=== PATIENT | female | born 1995 | race Caucasian/White ===

== ENCOUNTER 2019-09-11 02:42 | Inpatient (IN) | payer BC ==
--- OUTSIDE RECORDS SUMMARY | ~2019-09-11 | XMS | Encounter Summary ---
Demographics + + + | Address | [address] | | | [place] [address] | + + + | Home Phone | | + + + | Preferred Language | Unknown | + + + | Marital Status | | + + + | Rastafarian Affiliation | Unknown | + + + | Race | Unknown | + + + | Ethnic Group | Unknown | + + + Author + + + | Author | [facility] | | | and [place] | + + + | Organization | [facility] | | | and [place] | + + + | Address | Unknown | + + + | Phone | Unavailable | + + + Support + + +---------+ + | Name | Relationship | Address | Phone | + + +---------+ + | Corey Sweeney | ECON | Unknown | | + + +---------+ + Care Team Providers + +------+ + | Care Proposal Consultant Name | Role | Phone | + +------+ + | Brionna Lucio | PCP | | | PA | | | + +------+ + Encounter Details +--------+ + + + + | Date | Type | Department | Care Team | Description | +--------+ + + + + | 10/31/ | Orders Only | [facility] | Conversion | | | 2018 | | CONVERSION DEP [address] | Transaction, | | | | | [address] | Provider Unknown | | | | | [facility] | [phone] | | | | | [address] | | | | | | [phone] | | | +--------+ + + + + Social History + +-------+ +--------+------+ | Tobacco Use | Types | Packs/Day | Years | Date | | | | | Used | | + +-------+ +--------+------+ | Never Smoker | | | | | + +-------+ +--------+------+ + + + | Sex Assigned at | Date Recorded | | | | + + + | Not on file | | + + + + + + + | Job Start Date | Occupation | Industry | + + + + | Not on file | Not on file | Not on file | + + + + + + + + | Travel History | Travel Start | Travel End | + + + + + + | No recent travel history available. | + + documented as of this encounter Plan of Treatment Not on filedocumented as of this encounter Visit Diagnoses Not on filedocumented in this encounter"
--- OUTSIDE RECORDS SUMMARY | ~2019-09-11 | XMS | Clinical Summary ---
Demographics + + + | Address | [address] | | | [place] [address] | + + + | Home Phone | | + + + | Preferred Language | Unknown | + + + | Marital Status | | + + + | Mormonism Affiliation | Unknown | + + + | Race | Unknown | + + + | Ethnic Group | Unknown | + + + Author + + + | Author | [facility] | | | and [place] | + + + | Organization | [facility] | | | and [...] Team Providers + +------+ + | Care Pre Press Proofer Name | Role | Phone | + +------+ + | Brionna Lucio | PCP | | | PA | | | + +------+ + Allergies No Known Allergies Medications + + + +---------+------+------+-------+ | Medication | Sig | Dispensed | Refills | Star | End | Statu | | | | | | t | Date | s | | | | | | Date | | | + + + +---------+------+------+-------+ | gabapentin | Take 300 mg by mouth | | 9 | 06/1 | | Activ | | (NEURONTIN) 300 mg | daily. | | | 20 | | e | | capsule | | | | 18 | | | + + + +---------+------+------+-------+ | estradiol | Place 1 g vaginally | | 0 | 07/0 | | Activ | | (ESTRACE) 0.1 mg/g | daily. | | | 20 | | e | | vaginal cream | | | | 18 | | | + + + +---------+------+------+-------+ | XULANE 150-35 | Apply 1 patch | | 12 | 06/2 | | Activ | | MCG/24HR patch | topically once a | | | 3/20 | | e | | | week. | | | 18 | | | + + + +---------+------+------+-------+ Active Problems Not on file Family History + + +------+ + | Medical History | Relation | Name | Comments | + + +------+ + | Murmur | Father | | | + + +------+ + | Other (see comment) | Mother | | Other (see comments) - syncope, | | | | | palpitations | + + +------+ + | Other (see comment) | Son | | Neurologic Disorder - undiagnosed at this | | | | | point, seizures, developmental problems | + + +------+ + + +------+--------+ + | Relation | Name | Status | Comments | + +------+--------+ + | Brother | | Alive | | + +------+--------+ + | Father | | Alive | | + +------+--------+ + | Father | | | | + +------+--------+ + | Mother | | Alive | | + +------+--------+ + | Mother | | | | + +------+--------+ + | Son | | Alive | | + +------+--------+ + | Son | | | | + +------+--------+ + Social History + +-------+ +--------+------+ | [...] recent travel history available. | + + Last Filed Vital Signs + + + + + | Vital Sign | Reading | Time Taken | Comments | + + + + + | Blood Pressure | 104/68 | 10/31/2017 3:08 PM | | | | | PDT | | + + + + + | Pulse | 71 | 10/31/2017 3:08 PM | | | | | PDT | | + + + + + | Temperature | - | - | | + + + + + | Respiratory Rate | - | - | | + + + + + | Oxygen Saturation | - | - | | + + + + + | Inhaled Oxygen | - | - | | | Concentration | | | | + + + + + | Weight | 73.3 kg (161 lb 8 | 10/31/2017 3:08 PM | | | | oz) | PDT | | + + + + + | Height | 177.8 cm (5' 10") | 10/31/2017 3:08 PM | | | | | PDT | | + + + + + | Body Mass Index | 23.17 | 10/31/2017 3:08 PM | | | | | PDT | | + + + + + Plan of Treatment + + + + + | Health Maintenance | Due Date | Last Done | Comments | + + + + + | Vaccine: | | | | | Dtap/Tdap/Td (1 - | 5 | | | | Tdap) | | | | + + + + + | Vaccine: HPV (1 - | | | | | Female 2-dose | 5 | | | | series) | | | | + + + + + | Cervical Cancer | | | | | Screening (Pap) | 5 | | | + + + + + | Vaccine: Influenza | | | | | (Season Ended) | 0 | | | + + + + + Results Not on filefrom Last 3 Months
--- OUTSIDE RECORDS SUMMARY | ~2019-09-11 | XMS | Clinical Summary ---
Demographics + + + | Address | [address] | | | [place] [address] | + + + | Home Phone | | + + + | Preferred Language | Unknown | + + + | Marital Status | | + + + | Scientology Affiliation | Unknown | + + + | Race | Unknown | + + + | Ethnic Group | Unknown | + + + Author + + + | Author | [facility] (Historical as of | | | 12-08-18) | + + + | Organization | [facility] as [facility] | | | 12-08-18) | + + + | Address | Unknown | + + + | Phone | Unavailable | + + + Support + + +---------+ + | Name | Relationship | Address | Phone | + + +---------+ + | Corey Marcos | ECON | Unknown | | + + +---------+ + Care Team Providers + +------+ + | Care Insurance Application Investigator Name | Role | Phone | + +------+ + | Brionna Lucio | PP | Unavailable | + +------+ + Allergies No Known Allergies Current Medications + + +-------+---------+------+------+-------+ | Prescription | Sig. | Disp. | Refills | Star | End | Statu | | | | | | t | Date | s | | | | | | Date | | | + + +-------+---------+------+------+-------+ | gabapentin | Take 300 mg by mouth | | 9 | 09/22 | | Activ | | (NEURONTIN) 300 MG | daily. | | | 9/20 | | e | | capsule | | | | 18 | | | + + +-------+---------+------+------+-------+ | estradiol | Place 1 g vaginally | | 0 | 07/0 | | Activ | | (ESTRACE) 0.1 MG/GM | daily. | | | 6/20 | | e | | vaginal cream | | | | 18 | | | + + +-------+---------+------+------+-------+ | XULANE 150-35 | Apply 1 patch | | 12 | 06/2 | | Activ | | MCG/24HR | topically once a | | | 3/20 | | e | | | week. | | | 18 | | | + + +-------+---------+------+------+-------+ Active Problems Not on file Family History + + +------+ + | Medical History | Relation | Name | Comments | + + +------+ + | Murmur | Father | | | + + +------+ + | Other (see comments) | Mother | | syncope, palpitations | + + +------+ + | Neurologic Disorder | Son | | undiagnosed at this point, seizures, | | | | | developmental problems | + + +------+ + + +------+--------+ + | Relation | Name | Status | Comments | + +------+--------+ + | Brother | | Alive | | + +------+--------+ + | Father | | Alive | | + +------+--------+ + | Mother | | Alive | | + +------+--------+ + | Son | | Alive | | + +------+--------+ + Social History + +-------+ +--------+------+ | Tobacco Use | Types | Packs/Day | Years | Date | | | | | Used | | + +-------+ +--------+------+ | Never Smoker | | | | | + +-------+ +--------+------+ + +---+---+---+ | Smokeless Tobacco: | | | | | Never Used | | | | + +---+---+---+ + + +---------+ + | Alcohol Use | Drinks/We | oz/Week | Comments | | | ek | | | + + +---------+ + | No | | | | + + +---------+ + + + + | Sex Assigned at | Date Recorded | | | | + + + | Not on file | | + + + Last Filed Vital Signs + + + + | Vital Sign | Reading | Time Taken | + + + + | Blood Pressure | 104/68 | 10/31/2017 3:08 PM PDT | + + + + | Pulse | 71 | 10/31/2017 2:57 PM PDT | + + + + | Temperature | - | - | + + + + | Respiratory Rate | - | - | + + + + | Oxygen Saturation | 99% | 10/31/2017 2:57 PM PDT | + + + + | Inhaled Oxygen | - | - | | Concentration | | | + + + + | Weight | 73.3 kg (161 lb 8 | 10/31/2017 2:57 PM PDT | | | oz) | | + + + + | Height | 177.8 cm (5' 10") | 10/31/2017 2:57 PM PDT | + + + + | Body Mass Index | 23.17 | 10/31/2017 2:57 PM PDT | + + + + Plan of Treatment + + + + + | Health Maintenance | Due Date | Last Done | Comments | + + + + + | Vaccine: HPV (1 - | | | | | Female 3-dose | 9 | | | | series) | | | | + + + + + | Vaccine: | | | | | Dtap/Tdap/Td (1 - | 3 | | | | Tdap) | | | | + + + + + | Cervical Cancer | | | | | Screening (Pap) | 5 | | | + + + + + | Vaccine: Influenza | | | | | (Season Ended) | 0 | | | + + + + + Results Not on filefrom Last 3 Months Insurance +---------+--------+ +------+-------+ + | Payer | Benefi | Subscriber | Type | Phone | Address | | | t Plan | ID | | | | | | / | | | | | | | Group | | | | | +---------+--------+ +------+-------+ + | PREMERA | PREMER | [id number] | | | [address] [address] | | | A BLUE | 7 | | | [place], [place] | | | CARD | | | | [phone] | +---------+--------+ +------+-------+ + + +--------+ +--------+ + + | Guarantor Name | Accoun | Relation to | Date | Phone | Billing Address | | | t Type | Patient | of | | | | | | | | | | + +--------+ +--------+ + + | AMANUEL MARCOS P | Person | Self [birth year] Home: | [address] | | | al/Fam | | 1995 | [phone] [place] | | | bhavana | | [phone] | + +--------+ +--------+ + +
[~2019-09-11 02:42] MED LIST: ESTRACE42.5 GM VAGINAL; NEURONTIN300 MG PO; PRENATAL CAPSU1 EACH PO; XULANE PATCH1 EACH TD
[2019-09-11] MEDS ORDERED: PRENATAL VITAM1 EACH PO (03:35)
[2019-09-11] MEDS ORDERED: IRON240 MG PO (03:36)
--- NOTE | 2019-09-12 07:47 | PR ---
[facility] [address] [place], [place] [address] Signed PP Progress Notes Datetime Report Generated by LAITH: 09/12/2019 07:47 SUBJECTIVE: [id number] Pain: Within normal limits Vital Signs: [id number] Vital Signs: Reviewed; Within Normal Limits EXAM: [id number] Cardiovascular: Not Done Respiratory: Not Done Abdomen/Uterus: Abnormal Lochia: Normal Vulva/Perineum: Not Done Breasts: Not Done CVA Tenderness: Not Done Extremities: Normal Incision: Not Applicable Progress: Normal Exam Comments: Fundus firm, NT @ U-1. H/H 11.6/33.4, WBC 11.1, plat 186k IMPRESSION/PLAN/PROCEDURES: [id number] Impression: Normal progression Plan: Continue present management Progress Notes: Doing well. Will continue. Signing Physician: Abril Jacobson MD Copies: ~ *Electronically Signed* 09/12/19 0747 ABRIL JACOBSON MD PATIENT NAME: AMANUEL MARCOS PROGRESS NOTE DATE OF : [birth year] PHYSICIAN: ABRIL JACOBSON MD RPT #: [id number] REPORT IS CONFIDENTIAL AND NOT TO BE RELEASED WITHOUT AUTHORIZATION
--- NOTE | 2019-09-12 13:09 | NUR ---
MET WITH PTS' . HE IS VERY EXCITED, BOTH MOM AND BABY ARE DOING JUST FINE. HAD PLEASANT VISIT, ABLE TO ANSWER SIMPLE QUESTIONS ASKED, EXTENDED A BLESSING
--- NOTE | 2019-09-13 08:08 | PR ---
[facility] [address] [facility] [place], [place] [address] Signed PP Progress Notes Datetime Report Generated by LAITH: 09/13/2019 08:08 SUBJECTIVE: [id number] Pain: Within normal limits Vital Signs: [id number] Vital Signs: Reviewed; Within Normal Limits EXAM: [id number] Cardiovascular: Not Done Respiratory: Not Done Abdomen/Uterus: Abnormal Lochia: Normal Vulva/Perineum: Not Done Breasts: Not Done CVA Tenderness: Not Done Extremities: Normal Incision: Not Applicable Progress: Normal Exam Comments: Fundus firm, NT @ U-1. IMPRESSION/PLAN/PROCEDURES: [id number] Impression: Normal progression Plan: Discharge Procedures: None Progress Notes: Doing well. She is ready for D/C. Signing Physician: Abril Jacobson MD Copies: ~ *Electronically Signed* 09/13/19807 ABRIL JACOBSON MD PATIENT NAME: AMANUEL MARCOS PROGRESS NOTE DATE OF : [birth year] PHYSICIAN: ABRIL JACOBSON MD RPT #: [id number] REPORT IS CONFIDENTIAL AND NOT TO BE RELEASED WITHOUT AUTHORIZATION
== END 2019-09-13 11:24 | disposition home or self-care (01) | DRG 807 ==
LOC: FBCO 02:42 → FBC 03:17
PROVIDERS: ADMIT Obstetrics & Gynecology
PROC: 10E0XZZ Delivery of Products of Conception, External Approach (ICD-10-PCS; principal; 2019-09-11)
PROC: 0KQM0ZZ Repair Perineum Muscle, Open Approach (ICD-10-PCS; 2019-09-11)
PROC: 10907ZC Drainage of Amniotic Fluid, Therapeutic from Products of Conception, Via Natural or Artificial Opening (ICD-10-PCS; 2019-09-11)
DX: O99.824 Streptococcus B carrier state complicating childbirth (principal); Z37.0 Single live birth; Z3A.39 39 weeks gestation of pregnancy; O26.03 Excessive weight gain in pregnancy, third trimester; O76 Abnormality in fetal heart rate and rhythm complicating labor and delivery; O77.0 Labor and delivery complicated by meconium in amniotic fluid; O69.81X0 Labor and delivery complicated by cord around neck, without compression, not applicable or unspecified; O70.1 Second degree perineal laceration during delivery; Z86.19 Personal history of other infectious and parasitic diseases
CPT/HCPCS: 36415; 82803; 85027; J2540; J2590; J7121

== ENCOUNTER 2022-01-23 15:55 | Inpatient (IN) | payer BC ==
[~2022-01-23] VITALS: Ht 177.8 cm; Wt 97.5 kg
[~2022-01-23 15:55] MED LIST changes: +IRON240 MG PO; +PRENATAL VITAM1 EACH PO
--- NOTE | 2022-01-24 01:10 | PR ---
[facility] [place] [facility] [address] [facility] [place], [place] [address] Signed Progress Notes IP Datetime Report Generated by CPN: 01/24/2022 01:10 PROGRESS NOTES: [id number] Impression: Reassuring Heart Rate Procedures: Artificial ROM Other Procedures: attempted Plan: Continue Present Management VITAL SIGNS: [id number] Vital Signs: Reviewed; Within Normal Limits EXAM: [id number] Dilatation: 3.0 Effacement: 70 Station: -2 Contractions: not picking up well MEMBRANES: L7356988 Comments: No cervical change. AROM attempted but no fluid seen. Will continue. FETUS A: [id number] FHR Baseline: 150 Variability: Minimal - >Undetectable to <=5bpm Accelerations: 10X10 Decelerations: None FHR Category: Category II Presentation: Vertex FETUS B: [id number] Signing Physician: Abril aJcobson MD Copies: ~ *Electronically Signed* 01/24/22 0110 ABRIL JACOBSON MD PATIENT NAME: AMANUEL MARCOS PROGRESS NOTE DATE OF : [birth year] PHYSICIAN: ABRIL JACOBSON MD RPT #: [id number] REPORT IS CONFIDENTIAL AND NOT TO BE RELEASED WITHOUT AUTHORIZATION
--- NOTE | 2022-01-24 06:54 | PR ---
[facility] [address] [facility] [place], [place] [address] Signed Progress Notes IP Datetime Report Generated by CPN: 01/24/2022 06:54 PROGRESS NOTES: [id number] Impression: Reassuring Heart Rate Procedures: Artificial ROM Other Procedures: attempted xs 2 Plan: Continue Present Management VITAL SIGNS: [id number] Vital Signs: Reviewed; Within Normal Limits EXAM: [id number] Dilatation: 3.0 Effacement: 70 Station: -2 Contractions: not picking up well MEMBRANES: W0742954 Comments: No progress. status reassuring. If AROM does not oocur, next option for augmentation is pitocin. FETUS A: [id number] FHR Baseline: 150 Variability: Minimal - >Undetectable to <=5bpm Accelerations: 10X10 Decelerations: None FHR Category: Category II Presentation: Vertex FETUS B: [id number] Signing Physician: Abril Jacobson MD Copies: ~ *Electronically Signed* 01/24/22 0654 ABRIL JACOBSON MD PATIENT NAME: PRITIAMANUEL COLE LYUBOV PROGRESS NOTE DATE OF : 93 PHYSICIAN: ABRIL JACOBSON MD RPT #: [id number] REPORT IS CONFIDENTIAL AND NOT TO BE RELEASED WITHOUT AUTHORIZATION
--- NOTE | 2022-01-24 08:53 | PR ---
[facility] [address] [place], [place] [address] Signed Progress Notes IP Datetime Report Generated by CPN: 01/24/2022 08:52 PROGRESS NOTES: [id number] Impression: Reassuring Heart Rate Procedures: Artificial ROM Other Procedures: attempted xs 2 Plan: Augmentation VITAL SIGNS: [id number] Vital Signs: Reviewed; Within Normal Limits EXAM: [id number] Dilatation: 3.0 Effacement: 70 Station: -2 Contractions: not picking up well MEMBRANES: V0046555 Comments: Still no SROM after several attempts at AROM. She is naomi frequently but not effectively. I do not feel nipple stimulation is appropriate as it cannot be controlled. I feel pit augment is needed to decrease the frequency but increase the intensity of the contractions. This can be stopped when adequate labor established. She accepts this plan. FETUS A: [id number] FHR Baseline: 150 Variability: Minimal - >Undetectable to <=5bpm Accelerations: 10X10 Decelerations: None FHR Category: Category II Presentation: Vertex FETUS B: [id number] Signing Physician: Abril Jacobson MD Copies: ~ *Electronically Signed* 01/24/22851 ABRIL JACOBSON MD PATIENT NAME: AMANUEL MARCOS PROGRESS NOTE DATE OF : 93 PHYSICIAN: ABRIL JACOBSON MD RPT #: [id number] REPORT IS CONFIDENTIAL AND NOT TO BE RELEASED WITHOUT AUTHORIZATION
--- NOTE | 2022-01-24 12:00 | PR ---
[facility] [address] [facility] [place], [place] [address] Signed Progress Notes IP Datetime Report Generated by LAITH: 01/24/2022 12:00 PROGRESS NOTES: [id number] Impression: Normal Progression of Labor; Reassuring Heart Rate Procedures: Sterile Vag Exam Other Procedures: attempted xs 2 Plan: Continue Present Management VITAL SIGNS: [id number] Vital Signs: Reviewed; Within Normal Limits EXAM: [id number] Dilatation: 4.0 Effacement: 80 Station: -2 Contractions: not picking up well MEMBRANES: G5226013 Comments: Getting a little more uncomfortable. Ambulating. Has seen some clear fluid. Finally seeing some change in her cervix. Will continue with a little pitocin augment and ambulation. I think a sl increase in her pitocin will help with her contraction pattern. FETUS A: [id number] FHR Baseline: 150 Variability: Minimal - >Undetectable to <=5bpm Accelerations: 10X10 Decelerations: None FHR Category: Category II Presentation: Vertex FETUS B: [id number] Signing Physician: Abril Jacobson MD Copies: ~ *Electronically Signed* 01/24/22 1200 ABRIL JACOBSON MD PATIENT NAME: AMANUEL MARCOS PROGRESS NOTE DATE OF : 93 PHYSICIAN: ABRIL JACOBSON MD RPT #: [id number] REPORT IS CONFIDENTIAL AND NOT TO BE RELEASED WITHOUT AUTHORIZATION
--- NOTE | 2022-01-25 08:08 | PR ---
[facility] [address] [facility] [place], [place] [address] Signed PP Progress Notes Datetime Report Generated by CPN: 01/25/2022 08:08 SUBJECTIVE: [id number] Pain: Within Normal Limits Vital Signs: [id number] Vital Signs: Reviewed; Within Normal Limits EXAM: Ongoing Cardiovascular: Not Done Respiratory: Not Done Abdomen/Uterus: Abnormal Lochia: Normal Vulva/Perineum: Not Done Breasts: Not Done CVA Tenderness: Not Done Extremities: Normal Incision: Not Applicable Progress: Normal Exam Comments: Fundus firm, NT @ U-1. H/H 10.5/30.9, WBC 10.9, plat 211k IMPRESSION/PLAN/PROCEDURES: [id number] Impression: Normal Progression Plan: Discharge Procedures: None Progress Notes: Doing well. She desires D/C at 24 hrs. Signing Physician: Abril Jacobson MD Copies: ~ *Electronically Signed* 01/25/22807 ABRIL JACOBSON MD PATIENT NAME: AMANUEL MARCOS PROGRESS NOTE DATE OF : 93 PHYSICIAN: ABRIL JACOBSON MD RPT #: [id number] REPORT IS CONFIDENTIAL AND NOT TO BE RELEASED WITHOUT AUTHORIZATION
--- NOTE | 2022-01-25 12:15 | NUR ---
PT ALERT, ORIENTED AND ENJOYING SOME QUIET TIME WITH HER DAUGHTER AND HER . GAVE BLESSING AND HAD PRAYER WITH THEM. WILL FOLLOW NEEDED
== END 2022-01-25 16:35 | disposition home or self-care (01) | DRG 807 ==
LOC: FBCO 15:55 → FBC 17:45
PROVIDERS: ADMIT Obstetrics & Gynecology; ATTEND Obstetrics & Gynecology
PROC: 10E0XZZ Delivery of Products of Conception, External Approach (ICD-10-PCS; principal; 2022-01-24)
PROC: 0KQM0ZZ Repair Perineum Muscle, Open Approach (ICD-10-PCS; 2022-01-24)
PROC: 10907ZC Drainage of Amniotic Fluid, Therapeutic from Products of Conception, Via Natural or Artificial Opening (ICD-10-PCS; 2022-01-24)
DX: O99.824 Streptococcus B carrier state complicating childbirth (principal); O76 Abnormality in fetal heart rate and rhythm complicating labor and delivery; O70.1 Second degree perineal laceration during delivery; Z20.822 Contact with and (suspected) exposure to COVID-19; Z37.0 Single live birth; Z3A.40 40 weeks gestation of pregnancy; Z79.899 Other long term (current) drug therapy; Z91.018 Allergy to other foods
CPT/HCPCS: 36415; 59025; 85027; 86850; 86900; 86901; 87502; C9803; G0463; J2540; J2590; J7121; U0003